=== PATIENT | male | born 1985 | race Caucasian/White ===

== ENCOUNTER 2020-03-29 22:35 | Emergency (ER) | payer OTHER, SELFPAY ==
[2020-03-29 23:01] VITALS: BP 127/83; PULSE 91; RESP 16; TEMP 37.2; O2SAT 96; BMI 31.8
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
[2020-03-30] VITALS: BP 121/74; PULSE 86; RESP 18; TEMP 36.8; O2SAT 96
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
[2020-03-30] MEDS: Ibuprofen 600 MG TABLET PO (00:11)
[2020-03-30] MEDS: Acetaminophen 325 MG TABLET 650 MG PO (00:11)
== END 2020-03-30 01:50 | disposition home or self-care (01) ==
PROVIDERS: Emergency Provider Internal Medicine; PCP Internal Medicine
DX: S16.1XXA Strain of muscle, fascia and tendon at neck level, initial encounter (principal); V43.52XA Car driver injured in collision with other type car in traffic accident, initial encounter; Y93.89 Activity, other specified; Y92.414 Local residential or business street as the place of occurrence of the external cause; Y99.9 Unspecified external cause status
CPT/HCPCS: 72040; 72070; 72100; 73030; 99283; 99284

== ENCOUNTER → 2025-04-08 00:21 | Outpatient (BNV) | payer OTHER, SELFPAY | PROVIDERS: Visit Provider Radiology Neuroradiology | DX: R05.9 Cough, unspecified (principal) | CPT/HCPCS: 71046 ==

== ENCOUNTER 2025-04-08 23:44 | Emergency (ER) | payer OTHER, SELFPAY ==
--- NOTE | ~2025-04-08 | XR_ITS ---
CLINICAL HISTORY: cough 2 view chest x-ray Comparison: None provided Findings: Mild pulmonary opacities are nonspecific and may reflect pulmonary edema and/or pneumonitis given interstitial predominance. No pneumothorax or pleural effusion. Imaged mediastinum contours and cardiac silhouette are within upper limits of normal. Minimal imaged vertebral height losses are age indeterminate by radiographs. Mild degenerative changes include imaged AC joints. Calcifications adjacent to humerus likely due to calcific tendinitis. IMPRESSION: Mild pulmonary opacities are nonspecific and may reflect pulmonary edema/pneumonitis This document has been electronically signed by: Tyrone Nuñez MD on 04/09/2025 01:42:35
[2025-04-08 23:47] VITALS: BP 143/70; PULSE 99; RESP 20; TEMP 36.7; O2SAT 95; BMI 34.7
[2025-04-09 00:47] LABS: Resp Syncy Virus RNA Qual PCR NEGATIVE (Negative); SARS COV2 PCR INHOUSE NEGATIVE (Negative)
[2025-04-09 03:31] VITALS: O2SAT 92
--- OUTSIDE RECORDS SUMMARY | 2025-04-09 04:05 | XMS_ITS | Clinical Summary ---
Author Organization [address] Address [address] [place] [address] Phone Care Team Providers Care Carbon Dioxide Operator Name Role Phone Jassi Galicia MD Primary Care Provider Allergies No known active allergies Medications albuterol HFA (PROAIR HFA ; PROVENTIL HFA ; VENTOLIN HFA) 90 mcg/actuation inhaler Inhale 2 Puffs into the lungs every 4 hours as needed for Cough or Wheezing. 11/29/2022 Active albuterol HFA (PROAIR HFA ; PROVENTIL HFA ; VENTOLIN HFA) 90 mcg/actuation inhaler Inhale 2 Puffs into the lungs every 6 hours as needed for Cough or Wheezing. 07/26/2023 Active Encounters Date Type Department Care Team Description 02/25/2025 Telephone Adult Medicine [address] [phone] Jassi Galicia MD 01/11/2025 Telephone Adult Medicine [address] [phone] Jassi Galicia MD from Last 3 Months Immunizations Immunization Administration Dates Next Due PPD Test 10/22/2013 Tdap Tetanus diptheria acell ular pertussis (Boostrix; Adacel) 7yo and older 10/24/2013 Surgical History Surgery Date Site/Laterality Comments OTHER SURGICAL HISTORY PROCEDURE: DENIES PREVIOUS SURGERY Medical History Medical History Date Comments Historical Medical DX 10/22/2013 DX:NO ACTI VE MEDICAL PROBLEMS Family History Medical History Relation Name Comments Hypertension Brother 1 Heart attack Father x 2, age 61 Hypertension Father Diabetes Maternal Grandmother Diabetes Mother HTN Relation Name Status Comments Brother 1 Brother 2 Father Maternal Grandmother Mother Social History Tobacco Use Types Packs/Day Years Used Date Smoking Tobacco: Every Day Cigarettes Smokeless Tobacco: Never Alcohol Use Standard Drinks/Week Comments Yes 0 (1 standard drink = 0.6 oz pur e alcohol) Sex and Gender Information Value Date Recorded Sex Assigned at Not on file Legal Sex Male 9:50 AM EST Gender Identity Not on file Sexual Orientation Not on file Last Filed Vital Signs Vital Sign Reading Time Taken Comments Blood Pressure 131/82 07/26/2023 4:09 PM EDT Pulse 95 07/26/2023 4:09 PM EDT Temperature - - Respiratory Rate - - Oxygen Saturation - - Inhaled Oxygen Concentration - - Weight - - Height - - Body Mass Index - - Plan of Treatment Upcoming Encounters Date Type Department Care Team (Late st Contact Info) Description 06/05/2025 8:00 AM EST Office Visit Adult Medicine [facility] [address] [place] [phone] Jassi Galicia MD [address] [place] [address] Health Maintenance Due Date Last Done Comments Hepatitis B Vaccines (1 of 3 - 19+ 3-dose series) 2005 Pneumococcal Vaccine: Pediat rics (0 to 5 Years) and At-Risk Patients (6 to 49 Years) (1 of 2 - PCV) 2005 HPV Vaccines (1 - 3-dose SCD M series) 2013 Cholesterol Screening (Lipid Panel) 03/21/2022 HIV Screening 03/21/2022 Hepatitis C Screening 03/21/2022 Social Influencers of Health Screening 03/21/2022 DTaP,Tdap,and Td Vaccines (2 - Td or Tdap) 10/25/2023 10/24/2013 Depression Screening 04/18/2024 COVID-19 Vaccine ( - 2024-2 6 season) 2024 Influenza Vaccine (#1) 2024 RSV Immunization Adult Patie nts (1 - 1-dose 75+ series) 2061 HIB Vaccines Aged Out No longer eligi ble based on patient's age to complete this topic Hepatitis A Vaccines Aged Out No long er eligible based on patient's age to complete this topic IPV Vaccines Aged Out No longer eligi ble based on patient's age to complete this topic MMR Vaccines Aged Out No longer eligi ble based on patient's age to complete this topic Meningococcal ACWY Vaccine Aged Out N o longer eligible based on patient's age to complete this topic Meningococcal B Vaccine Aged Out No l onger eligible based on patient's age to complete this topic RSV Immunization Patients Un sebastian 20 months Aged Out No longer eligible b ased on patient's age to complete this topic Varicella Vaccines Aged Out No longer eligible based on patient's age to complete this topic Insurance MEDICAID - [place] [facility] Care Teams Carbon Dioxide Operator Relationship Specialty Start Date End Date Jassi Galicia MD [address] [place] [address] PCP - General Internal Medicine 08/28/24
--- NOTE | 2025-04-09 04:41 | PC.NURSE ---
pt report needing to leave soon for work. 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
--- NOTE | 2025-04-09 04:46 | ED_ITS ---
HPI - URI/Sore Throat General Chief Complaint: Upper Respiratory Symptoms Stated Complaint: bad cough Time Seen by Provider: 04/09/25 04:43 Source: patient Mode of arrival: ambulatory Limitations: no limitations History of Present Illness ED Provider: Dr. Rain Simms HPI Narrative: Patient comes to the emergency room complaining of cough for 4 days. Subjective fever and chills. Patient denies sore throat, denies shortness of breath Related Data Previous Rx's ?Medication ?Instructions ?Recorded cyclobenzaprine 10 mg tablet 10 mg PO TID PRN muscle s pasm #20 03/30/20 tabs azithromycin 250 mg tablet See Rx Instructions PO .COM PLEX #6 04/09/25 tabs Allergies Allergy/AdvReac Type Severity Reaction Status Date / Time No Known Allergies (No Known Allergy Verified 04/08/25 23:48 Allergies*) Review of Systems Review of Systems: Constitutional : No Weight loss, No Fever, No Chills, No Night Sweats, No Fatigue, No Malaise ENT/Mouth : No Hearing loss, No Ear Pain, No Nasal Congestion, No Sinus Pain, No Hoarseness, No sore throat, No Rhinorrhea, No Swallowing Difficulty Eyes: No Eye Pain, No Swelling, No Redness, No Foreign Body, No Discharge, No Vision Changes Cardiovascular : No Chest Pain, No SOB, No Dyspnea on Exertion, No Orthopnea, No Edema, No Palpitations Respiratory : Complaining of productive cough, No Wheezing, No Smoke Exposure, No Dyspnea Gastrointestinal : No Nausea, No Vomiting, No Diarrhea, No Constipation, No abdominal Pain, No Hematochezia, No Melena Genitourinary : no irregular bleeding, No Dysuria, No Urinary Frequency, No Hematuria, No Urinary Incontinence, No Urgency, No Flank Pain, No Urinary Flow Changes, No Hesitancy Musculoskeletal : No joint pain, No Myalgias, No Joint Swelling Skin : No Skin Lesions, No rash Neuro : No Weakness, No Numbness, No Paresthesias, No Loss of Consciousness, No Dizziness, No Headache Psych : No Anxiety/Panic, No Depression, No SI/HI/AH/VH, No Social Issues, Heme/Lymph: No Bruising, No Bleeding,No Lymphadenopathy Endocrine : No Polyuria, No Polydipsia, No Temperature Intolerance PMFSH Past Medical History Medical History No known health problems Social History Social History Alcohol intake: never Smoked in Last 30 Days: Yes Advance Directives: No Advance Directives Information Provided: Yes Physical Exam Exam: Exam: Appearance: Alert. Oriented X3. No acute distress. Eyes: Pupils equal, round and reactive to light. ENT: Pharynx normal. Neck: Normal inspection. Neck supple. No lymph nodes noted. No crepitus CVS: Normal heart rate and rhythm. Pulses normal. Normal S1 and S2 Respiratory: No respiratory distress. Breath sounds normal. No Wheezing. No rales Abdomen: Soft and nontender. No rigidity. No distention. Skin: Skin warm and dry. Normal skin color. Normal skin turgor. Extremities: No lower extremity edema. No Lacerations. No Rash Neuro: Oriented X 3. No motor deficit. No sensory deficit. Moving all extremities. No slurred speech. CN 2 through 12 grossly intact Psych: calm, cooperative, normal affect Vital Signs: Vital Signs: Last Vital Signs Temp 98.1 F 04/08/25 23:47 Pulse 99 04/08/25 23:47 Resp 20 04/08/25 23:47 BP 143/70 H 04/08/25 23:47 Pulse Ox 92 04/09/25 03:31 O2 Del Method Room Air 04/09/25 03:31 BMI result Body Mass Index 34.7 Medical Decision Making Medical Decision Making [facility] Narrative: My interpretation of labs: Patient tested negative for influenza a and B, RSV and COVID Chest x-rays were borderline for infiltrates versus pneumonitis versus pulmonary edema. Patient has no reason to have pulmonary edema. No lower extremity edema. No history of CHF. Discussed the above-mentioned with the patient, agrees with plan, antibiotics police sent to the patient's pharmacy. Lab Data [facility] Lab Attestation statement: I reviewed the patient's lab results. Labs: Lab Results 04/08/25 Range/Units 23:58 Influenza Type A (PCR) NEGATIVE (Negative) Influenza Type B (PCR) NEGATIVE (Negative) RSV RNA Qual (PCR) NEGATIVE (Negative) SARS-CoV-2 RNA (RT-PCR) NEGATIVE (Negative) Independent Interpretation I performed an independent interpretation of an: Plain X-Ray Radiology Impression Discussion of test interpretation with radiology: I have reviewed the radiologist's reading. Radiologist Impression: Mild pulmonary opacities are nonspecific and may reflect pulmonary edema and/or pneumonitis given interstitial predominance. No pneumothorax or pleural effusion. Imaged mediastinum contours and cardiac silhouette are within upper limits of normal. Minimal imaged vertebral height losses are age indeterminate by radiographs. Mild degenerative changes include imaged AC joints. Calcifications adjacent to humerus likely due to calcific tendinitis. IMPRESSION: Mild pulmonary opacities are nonspecific and may reflect pulmonary edema/pneumonitis Discharge Plan Discharge Clinical Impression: Pneumonia Patient Disposition: Home, Self-Care Instructions: Community Acquired Pneumonia (ED) Additional Instructions: Please follow-up with your primary care physician tomorrow. If you have any worsening or new symptoms, please return to the emergency room or call 911 Prescriptions: New azithromycin 250 mg tablet See Rx Instructions .ROUTE .COMPLEX Qty: 6 0RF Rx Instructions: For 250 mg dose pack: take 500 mg today (day 1), then 250 mg for 4 days (days 2-5) No Action cyclobenzaprine 10 mg tablet 10 mg PO TID PRN (Reason: muscle spasm) Qty: 20 0RF Print Language: German
[2025-04-09 04:54] VITALS: BP 138/72; PULSE 89; RESP 18; TEMP 36.4; O2SAT 94
== END 2025-04-09 04:55 | disposition home or self-care (01) ==
PROVIDERS: Emergency Provider Emergency Medicine
DX: J18.9 Pneumonia, unspecified organism (principal); R05.9 Cough, unspecified; R50.9 Fever, unspecified
CPT/HCPCS: 71046; 87637; 99283; 99284